=== PATIENT | female | born 1980 | race African-American/Black ===

== ENCOUNTER → 2017-01-25 | Outpatient (CLI) | payer MEDICAID ==
[2017-01-25 18:21] LABS: BILIRUBIN,URINE NEGATIVE (NEGATIVE); GLUCOSE, URINE (UA) NEGATIVE (NEGATIVE); KETONES,URINE (UA) TRACE mg/dL (NEGATIVE); LEUKOCYTE ESTERASE, URINE NEGATIVE (NEGATIVE); NITRITE,URINE NEGATIVE (NEGATIVE); OCCULT BLOOD,URINE NEGATIVE (NEGATIVE); PROTEIN,URINE NEGATIVE (NEGATIVE); UROBILINOGEN,URINE 0.2 (NORMAL) E.U./dL (NORMAL)
[2017-01-25 18:24] LABS: CLARITY,URINE CLEAR (CLEAR)
== END ==
LOC: LAB.F 08:00
DX: N39.0 Urinary tract infection, site not specified (principal)
CPT/HCPCS: 81001; 81003; 87086

== ENCOUNTER 2017-03-27 08:41 | Outpatient (CLI) | payer MEDICAID ==
[2017-03-27 11:52] LABS: BASOPHILS % (AUTO) 0.4 %; EOSINOPHILS # (AUTO) 0.1 10^3/uL (0.0-0.7); EOSINOPHILS % (AUTO) 1.7 %; HGB - HEMOGLOBIN 14.4 g/dL (12.0-16.0); LYMPHOCYTES # (AUTO) 1.9 10^3/uL (1.5-3.5); LYMPHOCYTES % (AUTO) 23.4 %; MEAN CORPUSCULAR HEMOGLOBIN 31.3 pg (27.0-31.0); MEAN CORPUSCULAR HGB CONC 34.4 g/dL (32.0-36.0); MEAN CORPUSCULAR VOLUME 90.8 fL (81.0-99.0); MEAN PLATELET VOLUME 8.8 fL (7.9-10.8); MONOCYTES # (AUTO) 0.4 10^3/uL (0.0-1.0); NEUTROPHILS # (AUTO) 5.8 10^3/uL (1.5-6.6); NEUTROPHILS % (AUTO) 69.5 %; PLT - PLATELET COUNT 278 10^3/uL (130-450); RED BLOOD COUNT 4.62 10^6/uL (4.20-5.40); RED CELL DISTRIBUTION WIDTH 12.4 % (12.0-15.0); WHITE BLOOD COUNT 8.3 x10^3/uL (4.8-10.8)
[2017-03-27 12:37] LABS: ALBUMIN 4.3 g/dL (3.2-5.5); ALBUMIN/GLOBULIN RATIO 1.4 (1.0-2.2); ALKALINE PHOSPHATASE 45 IU/L (42-121); ALT ALANINE AMINOTRANSFERASE 19 IU/L (10-60); AST ASPARTATE AMINOTRANSFERASE 22 IU/L (10-42); BILIRUBIN,TOTAL 1.3 mg/dL (0.2-1.0); BUN - BLOOD UREA NITROGEN 15 mg/dL (6-20); CARBON DIOXIDE - CO2 28 mmol/L (21-32); CHLORIDE 99 mmol/L (101-111); CHOL/HDL RATIO 2.9 (<4.4); CHOLESTEROL 178 mg/dL; CREATININE 0.6 mg/dL (0.4-1.0); GFR - MDRD 137 (>89); GLUCOSE 79 mg/dL (70-100); HDL CHOLESTEROL 62 mg/dL; LDL CHOLESTEROL,CALCULATED 98 mg/dL; LDL/HDL RATIO 1.6 (<4.4); SODIUM 137 mmol/L (135-145); TOTAL PROTEIN 7.4 g/dL (6.7-8.2); VLDL CHOLESTEROL 18 mg/dL
[2017-03-27 12:47] LABS: THYROID STIMULATING HORMONE 2.68 uIU/mL (0.34-5.60)
[2017-03-27 12:49] LABS: FREE T4 (FREE THYROXINE) 0.68 ng/dL (0.58-1.64)
== END 2017-03-27 08:42 | disposition home or self-care (01) ==
LOC: LAB.F 08:41
PROVIDERS: ATTEND Nurse Practitioner Family
DX: E03.9 Hypothyroidism, unspecified (principal); Z13.6 Encounter for screening for cardiovascular disorders
CPT/HCPCS: 36415; 80053; 80061; 83721; 84439; 84443; 84481; 85025

== ENCOUNTER 2017-09-21 08:00 | Outpatient (CLI) | payer MEDICAID ==
[2017-09-21 17:47] LABS: THYROID STIMULATING HORMONE 1.73 uIU/mL (0.34-5.60)
[2017-09-21 17:50] LABS: FREE T4 (FREE THYROXINE) 0.5 ng/dL (0.58-1.64)
== END 2017-09-21 08:01 ==
LOC: LAB.F 08:00
PROVIDERS: ATTEND Nurse Practitioner Family
DX: E03.9 Hypothyroidism, unspecified (principal)
CPT/HCPCS: 36415; 84439; 84443

== ENCOUNTER 2017-09-27 09:30 | Outpatient (CLI) | payer MEDICAID ==
[2017-09-27 18:04] LABS: BILIRUBIN,URINE NEGATIVE (NEGATIVE); GLUCOSE, URINE (UA) NEGATIVE (NEGATIVE); KETONES,URINE (UA) NEGATIVE (NEGATIVE); LEUKOCYTE ESTERASE, URINE NEGATIVE (NEGATIVE); NITRITE,URINE NEGATIVE (NEGATIVE); OCCULT BLOOD,URINE TRACE-INTA (NEGATIVE); PROTEIN,URINE NEGATIVE (NEGATIVE); UROBILINOGEN,URINE 0.2 (NORMAL) E.U./dL (NORMAL)
[2017-09-27 18:15] LABS: CLARITY,URINE HAZY (CLEAR)
[2017-09-27 18:16] LABS: BACTERIA,URINE Few /HPF (None Seen); MUCUS,URINE Few Strands; RBC,URINE 0-5 /HPF (0-5); SQUAMOUS EPITHELIAL CELL,UR FEW Squamous (<= Few); WBC CLUMPS,URINE PRESENT; YEAST,URINE PRESENT
== END 2017-09-27 09:31 | disposition home or self-care (01) ==
LOC: LAB.R 09:30
PROVIDERS: ATTEND Nurse Practitioner Family
DX: R30.0 Dysuria (principal)
CPT/HCPCS: 81001; 87086

== ENCOUNTER 2017-10-09 08:32 | Emergency (ER) | payer MEDICAID ==
[2017-10-09 12:06] LABS: BILIRUBIN,URINE NEGATIVE (NEGATIVE); GLUCOSE, URINE (UA) NEGATIVE (NEGATIVE); KETONES,URINE (UA) NEGATIVE (NEGATIVE); LEUKOCYTE ESTERASE, URINE NEGATIVE (NEGATIVE); NITRITE,URINE NEGATIVE (NEGATIVE); OCCULT BLOOD,URINE MODERATE (NEGATIVE); PH,URINE 6.5 PH (5.0-7.5); PROTEIN,URINE NEGATIVE (NEGATIVE); UROBILINOGEN,URINE 0.2 (NORMAL) E.U./dL (NORMAL)
[2017-10-09 12:17] LABS: CLARITY,URINE CLEAR (CLEAR); HCG UR QUAL NEGATIVE
[2017-10-09 12:23] LABS: BACTERIA,URINE Few /HPF (None Seen); MUCUS,URINE Few Strands; RBC,URINE 0-5 /HPF (0-5); SQUAMOUS EPITHELIAL CELL,UR FEW Squamous (<= Few)
[2017-10-09 12:42] LABS: BASOPHILS # (AUTO) 0.1 10^3/uL (0.0-0.1); BASOPHILS % (AUTO) 0.7 %; EOSINOPHILS # (AUTO) 0.1 10^3/uL (0.0-0.7); EOSINOPHILS % (AUTO) 2.1 %; HGB - HEMOGLOBIN 14.5 g/dL (12.0-16.0); LYMPHOCYTES # (AUTO) 1.7 10^3/uL (1.5-3.5); LYMPHOCYTES % (AUTO) 24.1 %; MEAN CORPUSCULAR HEMOGLOBIN 31.7 pg (27.0-31.0); MEAN CORPUSCULAR HGB CONC 35.2 g/dL (32.0-36.0); MEAN CORPUSCULAR VOLUME 90.1 fL (81.0-99.0); MEAN PLATELET VOLUME 8.6 fL (7.9-10.8); MONOCYTES # (AUTO) 0.4 10^3/uL (0.0-1.0); MONOCYTES % (AUTO) 5.9 %; NEUTROPHILS # (AUTO) 4.6 10^3/uL (1.5-6.6); NEUTROPHILS % (AUTO) 67.2 %; PLT - PLATELET COUNT 315 10^3/uL (130-450); RED BLOOD COUNT 4.57 10^6/uL (4.20-5.40); WHITE BLOOD COUNT 6.9 x10^3/uL (4.8-10.8)
--- NOTE | 2017-10-09 12:45 | ED Physician Documentation ---
PD HPI ABD PAIN - Stated complaint Stated Complaint: SIDE PX/PRESSURE - Chief complaint Chief Complaint: Abd Pain - History obtained from History obtained from: Patient - History of Present Illness Timing - duration: Days Timing - details: Gradual onset Quality: Cramping, Aching, Fullness/distended (she feels that she is not emptying bladder and has cramping pains suprapubic area.) Location: Periumbilical, Suprapubic Radiation: Right flank Improved by: No: Eating Worsened by: No: Eating Associated symptoms: Nausea, Dysuria. No: Fever, Vomiting, Diarrhea, Hematuria , Loss of appetite, Weight loss Similar symptoms before: Has not had sx before Recently seen: Clinic (seen in clinic and had question of UTI with Rx Bactrim for a week. No change in symptoms. Did not get follow up call on urine culture.) Review of Systems Constitutional: reports: Myalgias. denies: Fever, Chills Nose: denies: Rhinorrhea / runny nose, Congestion Throat: denies: Sore throat Respiratory: denies: Cough GI: reports: Abdominal Pain, Nausea. denies: Vomiting, Diarrhea : reports: Dysuria, Frequency. denies: Hematuria, Discharge Skin: denies: Rash, Lesions Musculoskeletal: reports: Back pain. denies: Neck pain PD PAST MEDICAL HISTORY - Past Medical History Cardiovascular: None Respiratory: None Neuro: None Endocrine/Autoimmune: HyPOthyroidism - Present Medications Home Medications: Ambulatory Orders Medication Instructions Recorded Confirmed Fluconazole [Diflucan] 150 mg PO Q2D #3 tablet 10/09/17 Liothyronine [Cytomel] 15 mcg PO QDAC 10/09/17 10/09/17 Nitrofurantoin Monohyd/M-Cryst 100 mg PO BID #14 capsule 10/09/17 [Macrobid 100 mg Capsule] Ondansetron Odt [Zofran] 4 mg TL Q6H PRN #15 tablet 10/09/17 Phenazopyridine [Pyridium] 200 mg PO TID PRN #15 tablet 10/09/17 - Allergies Allergies/Adverse Reactions: Allergies Allergy/AdvReac Type Severity Reaction Status Date / Time No Known Drug Allergies Allergy Verified 10/09/17 08:57 PD ED PE NORMAL - Vitals Vital signs reviewed: Yes - General General: Alert and oriented X 3, No acute distress, Well developed/nourished - HEENT HEENT: Pharynx benign - Neck Neck: Supple, no meningeal sign, No adenopathy - Cardiac Cardiac: RRR, No murmur - Respiratory Respiratory: Clear bilaterally - Abdomen Abdomen: Normal bowel sounds, Soft, Non distended, No organomegaly, Other (some tender without guarding lower abd midline. Bladder scanner by nursing showing just 57 ml post void. ) - Female Female : Deferred - Rectal Rectal: Deferred - Back Back: No CVA TTP - Derm Derm: Normal color, Warm and dry, No rash - Extremities Extremities: No deformity, No tenderness to palpate, Normal ROM s pain, No edema , No calf tenderness / cord - Neuro Neuro: Alert and oriented X 3, No motor deficit, Normal speech Results - Vitals Vitals: Oxygen O2 Source Room air - Labs Labs: Microbiology 10/09/17 14:55 Urine Culture - Final Urine,Clean Catch 10-50,000 COLONIES/ML Polymicrobial growth including potential pathogens. This is suggestive of skin or other contamination. Laboratory Tests 10/09/17 10/09/17 10/09/17 11:40 12:20 12:20 WBC 6.9 RBC 4.57 Hgb 14.5 Hct 41.2 MCV 90.1 MCH 31.7 H MCHC 35.2 RDW 13.0 Plt Count 315 MPV 8.6 Neut # (Auto) 4.6 Lymph # (Auto) 1.7 [place] # (Auto) 0.4 Eos # (Auto) 0.1 Baso # (Auto) 0.1 Absolute Nucleated RBC 0.00 Nucleated RBC % 0.0 Sodium 134 L Potassium 3.4 L Chloride 100 L Carbon Dioxide 25 Anion Gap 9.0 BUN 13 Creatinine 0.6 Estimated GFR (MDRD) 136 Glucose 138 H Calcium 9.5 Total Bilirubin 1.2 H AST 18 ALT 13 Alkaline Phosphatase 57 Total Protein 7.8 Albumin 4.5 Globulin 3.3 Albumin/Globulin Ratio 1.4 Lipase 30 Urine Color YELLOW Urine Clarity CLEAR Urine pH 6.5 Ur Specific [place] 1.020 Urine Protein NEGATIVE Urine Glucose (UA) NEGATIVE Urine Ketones NEGATIVE Urine Occult Blood MODERATE H Urine Nitrite NEGATIVE Urine Bilirubin NEGATIVE Urine Urobilinogen 0.2 (NORMAL) Ur Leukocyte Esterase NEGATIVE Urine RBC 0-5 Urine WBC 0-3 Ur Squamous Epith Cells FEW Squamous Urine Bacteria Few Urine Mucus Few Strands Ur Microscopic Review INDICATED Urine Culture Comments NOT INDICATED Urine HCG, Qual NEGATIVE - Rads (name of study) abd/pelvic CT Radiology: Prelim report reviewed (stones in kidney, no ureteral stones. no other acute process. ) PD MEDICAL DECISION MAKING - ED course Complexity details: reviewed old records (prior urine culture reports growth of yeast. ), reviewed results (no stones nor hydro or other finding for the pain. ) , considered differential, d/w patient - Sepsis Event Vital Signs: Oxygen O2 Source Room air Departure - Departure Disposition: Home, Self Care Clinical Impression: Dysuria, Yeast UTI Urinary tract infection Qualifiers: Urinary tract infection type: acute cystitis Hematuria presence: without hematuria Qualified Code(s): N30.00 - Acute cystitis without hematuria Condition: Stable Record reviewed to determine appropriate education?: Yes Instructions: ED UTI Cystitis Female Follow-Up: Niesha Barragan ARNP [Primary Care Provider] - Prescriptions: Fluconazole [Diflucan] 150 mg PO Q2D #3 tablet Nitrofurantoin Monohyd/M-Cryst [Macrobid 100 mg Capsule] 100 mg PO BID #14 capsule Ondansetron Odt [Zofran] 4 mg TL Q6H PRN #15 tablet PRN Reason: Nausea / Vomiting Phenazopyridine [Pyridium] 200 mg PO TID PRN #15 tablet PRN Reason: Pain Comments: Your CT scan does not show any signs of obvious cause for the pains. Your bladder scanner shows minimal postvoid residual which is a good thing. There is no obvious infection on your urine test today but the culture from recently showed yeast. We will treat that with an antifungal Diflucan. Phenazopyridine for the urinary discomfort. Use some naproxen or ibuprofen twice daily for inflammation. Ondansetron if needed for nausea. Pending the culture from today , will treat with the antibiotic just in case with my growth. Twice daily for a week. We will see what the culture shows the next 2-3 days. Discharge Date/Time: 10/09/17 15:30
[2017-10-09 12:54] LABS: ALBUMIN 4.5 g/dL (3.2-5.5); ALBUMIN/GLOBULIN RATIO 1.4 (1.0-2.2); BILIRUBIN,TOTAL 1.2 mg/dL (0.2-1.0); CALCIUM 9.5 mg/dL (8.5-10.3); CREATININE 0.6 mg/dL (0.4-1.0); TOTAL PROTEIN 7.8 g/dL (6.7-8.2)
--- NOTE | 2017-10-09 14:10 | CT Report ---
Reason: flank pain and dysuria. Procedure Date: 10/09/2017 Accession Number: [id number] / [id number] Procedure: CT - KUB CPT Code: FULL RESULT: EXAM: CT ABDOMEN AND PELVIS EXAM DATE: 10/09/2017 01:36 PM. CLINICAL HISTORY: Bilateral flank pain and dysuria. COMPARISONS: None. TECHNIQUE: Routine helical CT imaging was performed through the abdomen and pelvis. IV contrast: None. Enteric contrast: No. Reconstructions: Coronal and sagittal. In accordance with CT protocol optimization, one or more of the following dose reduction techniques were utilized for this exam: automated exposure control, adjustment of mA and/or KV based on patient size, or use of iterative reconstructive technique. FINDINGS: Lung Bases: Unremarkable. Liver: Normal. No masses. Gallbladder/Bile Ducts: Unremarkable. Spleen: Normal. Pancreas: Normal. Adrenal Glands: Normal. Kidneys: Several 5 mm and smaller nonobstructing calyceal stones right kidney. Single 1 mm nonobstructing stone left kidney. No renal masses nor hydronephrosis. No peripelvic nor perirenal edema. Both ureters are normal. Peritoneal Cavity/Bowel: Several 1.2 cm and smaller dense mesenteric calcifications left mid abdomen. No free fluid, free air or noncalcified adenopathy. No masses or acute inflammatory process. Appendix not seen. No inflammatory changes adjacent to cecum. Pelvic Organs: Normal. The bladder and visualized pelvic organs are within normal limits. Vasculature: No aneurysms or other significant abnormality. Bones: No significant abnormality. Other: None. IMPRESSION: 1. Bilateral nephrolithiasis. No obstructive uropathy. 2. Benign appearing mesenteric calcifications left mid abdomen, most likely representing old inflammatory or granulomatous process. 3. Appendix not visualized but no inflammatory changes adjacent to the cecum. RADIA
[2017-10-09] MEDS ORDERED: NITROFURANTOIN MACRO 100 MG CAPSULE PO STA (14:46)
[2017-10-09] MEDS ORDERED: DEXAMETHASONE 10 MG/ML VIAL PO STA (14:46)
[2017-10-09] MEDS ORDERED: FLUCONAZOLE 100 MG TABLET PO STA (14:46)
[2017-10-09] MEDS ORDERED: PHENAZOPYRIDINE 100 MG TABLET PO STA (14:47)
[2017-10-09 14:50] VITALS: BP 134/88
[2017-10-09] MEDS ORDERED: CHERRY SYRUP 10 ML UDC PO ONE (15:00)
== END 2017-10-09 15:30 | disposition home or self-care (01) ==
LOC: ED 08:32
DX: B37.49 Other urogenital candidiasis (principal); N30.90 Cystitis, unspecified without hematuria; E03.9 Hypothyroidism, unspecified
CPT/HCPCS: 36415; 74176; 80053; 81001; 81025; 83690; 85025; 87086; 99283; A9270; 81003

== ENCOUNTER 2017-11-16 07:51 | Outpatient (CLI) | payer MEDICAID ==
[2017-11-16 11:15] LABS: THYROID STIMULATING HORMONE 2.27 uIU/mL (0.34-5.60)
[2017-11-16 11:17] LABS: FREE T4 (FREE THYROXINE) 0.46 ng/dL (0.58-1.64)
== END 2017-11-16 07:52 | disposition home or self-care (01) ==
LOC: LAB.F 07:51
PROVIDERS: ATTEND Nurse Practitioner Family
DX: I10 Essential (primary) hypertension (principal); E03.9 Hypothyroidism, unspecified
CPT/HCPCS: 36415; 84132; 84439; 84443

== ENCOUNTER 2018-01-16 12:16 | Outpatient (CLI) | payer MEDICAID ==
[2018-01-16 18:51] LABS: THYROID STIMULATING HORMONE 1.43 uIU/mL (0.34-5.60)
[2018-01-16 18:53] LABS: FREE T4 (FREE THYROXINE) 0.95 ng/dL (0.58-1.64)
[2018-01-16 18:57] LABS: PROLACTIN 10.45 ng/mL
== END 2018-01-16 12:17 | disposition home or self-care (01) ==
LOC: LAB.F 12:16
PROVIDERS: ATTEND Internal Medicine
DX: E03.9 Hypothyroidism, unspecified (principal); R53.82 Chronic fatigue, unspecified; R94.6 Abnormal results of thyroid function studies; G47.30 Sleep apnea, unspecified; E66.9 Obesity, unspecified
CPT/HCPCS: 36415; 84146; 84439; 84443

== ENCOUNTER 2018-02-01 07:12 | Outpatient (CLI) | payer MEDICAID ==
[2018-02-01 10:21] LABS: BASOPHILS % (AUTO) 0.2 %; EOSINOPHILS # (AUTO) 0.1 10^3/uL (0.0-0.7); EOSINOPHILS % (AUTO) 1.7 %; HGB - HEMOGLOBIN 13.3 g/dL (12.0-16.0); LYMPHOCYTES # (AUTO) 2.1 10^3/uL (1.5-3.5); LYMPHOCYTES % (AUTO) 27.4 %; MEAN CORPUSCULAR HEMOGLOBIN 31.6 pg (27.0-31.0); MEAN CORPUSCULAR HGB CONC 35.3 g/dL (32.0-36.0); MEAN CORPUSCULAR VOLUME 89.5 fL (81.0-99.0); MEAN PLATELET VOLUME 8.9 fL (7.9-10.8); MONOCYTES # (AUTO) 0.5 10^3/uL (0.0-1.0); NEUTROPHILS # (AUTO) 4.9 10^3/uL (1.5-6.6); NEUTROPHILS % (AUTO) 64.7 %; PLT - PLATELET COUNT 281 10^3/uL (130-450); RED CELL DISTRIBUTION WIDTH 12.4 % (12.0-15.0); WHITE BLOOD COUNT 7.5 x10^3/uL (4.8-10.8)
[2018-02-01 10:25] LABS: ALBUMIN 4.1 g/dL (3.2-5.5); ALBUMIN/GLOBULIN RATIO 1.5 (1.0-2.2); BILIRUBIN,TOTAL 0.6 mg/dL (0.2-1.0); CREATININE 0.6 mg/dL (0.4-1.0); TOTAL PROTEIN 6.8 g/dL (6.7-8.2)
== END 2018-02-01 07:13 | disposition home or self-care (01) ==
LOC: LAB.F 07:12
PROVIDERS: ATTEND Internal Medicine
DX: R68.2 Dry mouth, unspecified (principal); R06.02 Shortness of breath; E03.9 Hypothyroidism, unspecified
CPT/HCPCS: 36415; 80053; 84443; 85025

== ENCOUNTER 2018-03-06 12:32 | Outpatient (CLI) | payer MEDICAID ==
[2018-03-06 18:21] LABS: THYROID STIMULATING HORMONE 1.34 uIU/mL (0.34-5.60)
[2018-03-06 18:22] LABS: FREE T4 (FREE THYROXINE) 0.5 ng/dL (0.58-1.64)
== END 2018-03-06 12:33 | disposition home or self-care (01) ==
LOC: LAB.F 12:32
PROVIDERS: ATTEND Nurse Practitioner Family
DX: E03.9 Hypothyroidism, unspecified (principal)
CPT/HCPCS: 36415; 84439; 84443; 84480; 84481

== ENCOUNTER 2018-03-22 12:24 | Outpatient (CLI) | payer MEDICAID ==
--- NOTE | 2018-03-22 15:39 | Mammography Report ---
Reason: SCREENING MAMMOGRAM FOR BREAST CANCER Procedure Date: 03/22/2018 Accession Number: [id number] / [id number] Procedure: CARLO - Diagnostic Dig Bilat CPT Code: FULL RESULT: EXAM: Diagnostic Dig Bilat, Breast Unilateral Limited DATE: 03/22/2018 1:41 PM CLINICAL HISTORY: Focal periareolar left breast pain TECHNIQUE: Bilateral digital CC and MLO projections. Real-time scanning of the left breast periareolar region with me present and saved static images reviewed. COMPARISON: Baseline examination. MAMMOGRAM: FINDINGS: The breast tissue is heterogeneously dense. No dominant mass, architectural distortion, skin thickening, or suspicious microcalcifications. No abnormality seen in the area of left periareolar pain. LEFT BREAST ULTRASOUND: In the area of focal pain left breast 11:00 position 2 cm from the nipple there is focal likely related to interfaces between breast tissue and focal supporting structures. No cystic or solid mass or abnormal fluid collection is seen. IMPRESSION: 1. Negative right breast. 2. Probably benign finding left breast. Suggest follow-up left breast ultrasound in 6 months. RECOMMENDATION: Left breast ultrasound in 6 months. BIRADS CATEGORY 3: Probably benign STANDARD QUALIFYING STATEMENTS: 1. This examination was not reviewed with the aid of Computer-Aided Detection (CAD). 2. A negative or benign imaging report should not delay biopsy if clinically suspicious findings are present. Consider surgical consultation if warrented. More than 5% of cancers are not identified by imaging. 3. Dense breasts may obscure an underlying neoplasm. 4. This examination was reviewed with the aid of 3D imaging (tomography).
== END 2018-03-22 12:25 | disposition home or self-care (01) ==
LOC: DI 12:24
PROVIDERS: ATTEND Nurse Practitioner Family
DX: N64.4 Mastodynia (principal)
CPT/HCPCS: 76642; 77066

== ENCOUNTER 2018-04-30 08:00 | Outpatient (CLI) | payer MEDICAID ==
[2018-04-30 18:15] LABS: THYROID STIMULATING HORMONE 0.97 uIU/mL (0.34-5.60)
[2018-04-30 18:17] LABS: FREE T4 (FREE THYROXINE) 0.6 ng/dL (0.58-1.64)
== END 2018-04-30 23:59 | disposition home or self-care (01) ==
LOC: LAB.F 08:00
PROVIDERS: ATTEND Nurse Practitioner
DX: E03.9 Hypothyroidism, unspecified (principal)
CPT/HCPCS: 36415; 84439; 84443; 84481

== ENCOUNTER 2018-06-09 11:57 | Outpatient (CLI) | payer MEDICAID ==
--- NOTE | 2018-06-10 12:51 | Ultrasound Report ---
Reason: LUMP, LEFT AXILLA Procedure Date: 06/09/2018 Accession Number: [id number] / [id number] Procedure: US - Ext Limited Non Vascular CPT Code: FULL RESULT: EXAM: LEFT UPPER EXTREMITY ULTRASOUND - LIMITED EXAM DATE: 06/09/2018 12:23 PM. CLINICAL HISTORY: Lump in the left axilla. COMPARISON: None. TECHNIQUE: Real-time scanning was performed with static images obtained. FINDINGS: Limited focused ultrasound examination of the left axillary region demonstrates preserved tissue architecture with no abnormal mass or collection identified. IMPRESSION: Normal study. RADIA
== END 2018-06-09 11:58 | disposition home or self-care (01) ==
LOC: DI 11:57
PROVIDERS: ATTEND Nurse Practitioner Family
DX: R22.9 Localized swelling, mass and lump, unspecified (principal)
CPT/HCPCS: 76882

== ENCOUNTER 2019-06-20 13:09 | Outpatient (CLI) | payer MEDICAID ==
--- NOTE | 2019-06-20 16:02 | CT Report ---
Reason: PELVIC PAIN Procedure Date: 06/20/2019 Accession Number: [id number] / [id number] Procedure: CT - PELVIS WO CPT Code: Final Report FULL RESULT: EXAM: CT BONY PELVIS WITHOUT CONTRAST EXAM DATE: 06/20/2019 01:23 PM. CLINICAL HISTORY: Chronic bilateral pelvic/SI joint pain x2 years. COMPARISON: None. TECHNIQUE: Thin-section axial images were acquired of the pelvis without contrast. Post-processing: Coronal and sagittal reformats. Other: None. In accordance with CT protocol optimization, one or more of the following dose reduction techniques were utilized for this exam: automated exposure control, adjustment of mA and/or KV based on patient size, or use of iterative reconstructive technique. FINDINGS: Bones: There is diffuse sclerosis along the iliac side of both sacroiliac joints, more pronounced on the left than on the right. On the left, this involves the entire craniocaudad extent of the SI joint and there is no significant sclerosis along the sacral side of the SI joint. On the right, the sclerosis is most pronounced along the inferior margin of the sacroiliac joint and there is a small amount of sclerosis along the sacral side of the joint at the midportion of the SI joint in the craniocaudad dimension. Differential diagnosis would include osteitis condensans ilii versus sacroiliitis. Osteitis condensans ilii is favored as there are no CT signs of sacroiliitis including no erosions or joint space narrowing. The hip joints are normal bilaterally. The pubic symphysis is normal. The pelvis, sacrum, and proximal femora are intact. No fracture. Soft tissues: The visible intrapelvic and extrapelvic soft tissues are unremarkable. IMPRESSION: 1. No fracture. 2. Sclerosis along the iliac side of both sacroiliac joints, more pronounced on the left, with scant sclerosis along the sacral side of the left sacroiliac joint. Differential diagnosis would include inflammatory sacroiliitis versus benign osteitis condensans ilii. The lack of erosions or ankylosis favors osteitis condensans ilii, though the asymmetric appearance of the sclerosis is somewhat atypical as osteitis condensans ilii is usually bilaterally symmetric. RADIA
== END 2019-06-20 13:10 | disposition home or self-care (01) ==
LOC: DI 13:09
PROVIDERS: ATTEND Anesthesiology
DX: R10.2 Pelvic and perineal pain (principal); G89.29 Other chronic pain
CPT/HCPCS: 72192

== ENCOUNTER 2019-07-17 13:34 | Outpatient (CLI) | payer MEDICAID ==
--- NOTE | 2019-07-17 15:39 | MRI Report ---
PROCEDURE: Pelvis W/O INDICATIONS: PELVIC PAIN (RULE OUT PELVIC FRACTURE) TECHNIQUE: Noncontrast coronal T1 spin echo and STIR through the bony pelvis. Sagittal T2 FSE with fat saturati on, oblique axial PD FSE and T2 FSE with fat saturation through the symphysis pubis. COMPARISON: None. FINDINGS: Image quality: Excellent. Tendons and muscles: The attachments of the rectus abdominis and adductor longus muscles anterior to the pubic bodies appear intact bilaterally. The intervening common aponeurosis demonstrates normal morphology and signal. More inferiorly, the adductor longus musculotendinous junctions appear normal , without tendinopathy or tears. More inferior images demonstrate no fascial herniations of the addu ctor longus muscle fibers. Bony structures: No focal bone marrow edema around the symphysis pubis. No productive or erosive renu ny changes to suggest osteitis pubis. No stress fractures. No suspicious marrow space occupying les ions. Other tendons: The gluteus medius and minimus tendons appear intact, without associated muscle atrop hy. The iliopsoas tendon appears intact, without adjacent bursal fluid collections. The origin of t he hamstring tendons are intact at the ischial tuberosities. Hip joints: Larger field of view images demonstrate no avascular necrosis of the femoral heads. The acetabular labrum appears intact in the absence of intra-articular contrast. Soft tissues: Immediately lateral to the rectus abdominis tendon fibers, the superficial rings of th e inguinal canals demonstrate no hernias. The proximal sciatic neurovascular bundles appear normal a djacent to the hamstring tendons. There is a small amount of free fluid within the pelvis, which is w ithin physiological limits in a menstruating female. Bladder wall thickness is normal. Genitourinary structures and bowel loops appear normal where visualized. IMPRESSION: 1. No osseous abnormality. No fracture. 2. Small amount of physiologic free fluid within the pelvis. Reviewed by: Davy Steele MD on 07/17/2019 3:38 PM PDT Approved by: Davy Steele MD on 07/17/2019 3:38 PM PDT Station ID: [id number]
== END 2019-07-17 13:35 | disposition home or self-care (01) ==
LOC: DI 13:34
PROVIDERS: ATTEND Anesthesiology
DX: R10.2 Pelvic and perineal pain (principal)
CPT/HCPCS: 72195

== ENCOUNTER 2019-08-07 12:47 | Outpatient (CLI) | payer MEDICAID | END 2019-08-07 12:48 | disposition home or self-care (01) | LOC: LAB 12:47 | PROVIDERS: ATTEND Internal Medicine | DX: Z01.818 Encounter for other preprocedural examination (principal); Z20.828 Contact with and (suspected) exposure to other viral communicable diseases | CPT/HCPCS: 81599 ==

== ENCOUNTER 2019-08-08 11:46 | Outpatient (CLI) | payer MEDICAID ==
[2019-08-08 14:46] LABS: CALCIUM 9.1 mg/dL (8.5-10.3); CREATININE 0.6 mg/dL (0.4-1.0)
== END 2019-08-08 11:47 | disposition home or self-care (01) ==
LOC: LAB.S 11:46
PROVIDERS: ATTEND Nurse Practitioner Psychiatric/Mental Health
DX: F31.9 Bipolar disorder, unspecified (principal)
CPT/HCPCS: 36415; 80048

== ENCOUNTER 2019-11-04 14:53 | Outpatient (CLI) | payer MEDICAID ==
[2019-11-04 19:59] LABS: BASOPHILS % (AUTO) 0.5 %; EOSINOPHILS # (AUTO) 0.1 10^3/uL (0.0-0.7); EOSINOPHILS % (AUTO) 0.8 %; HGB - HEMOGLOBIN 14.8 g/dL (12.0-16.0); LYMPHOCYTES # (AUTO) 2.1 10^3/uL (1.5-3.5); LYMPHOCYTES % (AUTO) 23.7 %; MEAN CORPUSCULAR HEMOGLOBIN 30.4 pg (27.0-31.0); MEAN CORPUSCULAR HGB CONC 32.6 g/dL (32.0-36.0); MEAN CORPUSCULAR VOLUME 93.2 fL (81.0-99.0); MEAN PLATELET VOLUME 10.9 fL (7.9-10.8); MONOCYTES # (AUTO) 0.4 10^3/uL (0.0-1.0); MONOCYTES % (AUTO) 4.3 %; NEUTROPHILS # (AUTO) 6.1 10^3/uL (1.5-6.6); NEUTROPHILS % (AUTO) 70.4 %; PLT - PLATELET COUNT 372 10^3/uL (130-450); RED BLOOD COUNT 4.87 10^6/uL (4.20-5.40); RED CELL DISTRIBUTION WIDTH 11.8 % (12.0-15.0); WHITE BLOOD COUNT 8.7 x10^3/uL (4.8-10.8)
[2019-11-04 20:06] LABS: BILIRUBIN,URINE NEGATIVE (NEGATIVE); GLUCOSE, URINE (UA) NEGATIVE (NEGATIVE); KETONES,URINE (UA) NEGATIVE (NEGATIVE); LEUKOCYTE ESTERASE, URINE NEGATIVE (NEGATIVE); NITRITE,URINE NEGATIVE (NEGATIVE); OCCULT BLOOD,URINE NEGATIVE (NEGATIVE); PROTEIN,URINE NEGATIVE (NEGATIVE); UROBILINOGEN,URINE 0.2 (NORMAL) E.U./dL (NORMAL)
[2019-11-04 20:21] LABS: BACTERIA,URINE Few /HPF (None Seen); CLARITY,URINE HAZY (CLEAR); CRYSTALS,URINE 11-25 Ca Oxalate /LPF; MUCUS,URINE Few Strands; RBC,URINE 0-5 /HPF (0-5); SQUAMOUS EPITHELIAL CELL,UR FEW Squamous (<= Few)
[2019-11-04 20:23] LABS: ALBUMIN 4.7 g/dL (3.2-5.5); ALBUMIN/GLOBULIN RATIO 1.4 (1.0-2.2); ALKALINE PHOSPHATASE 47 IU/L (42-121); ALT ALANINE AMINOTRANSFERASE 16 IU/L (10-60); AST ASPARTATE AMINOTRANSFERASE 19 IU/L (10-42); BUN - BLOOD UREA NITROGEN 20 mg/dL (6-20); CALCIUM 9.5 mg/dL (8.5-10.3); CARBON DIOXIDE - CO2 29 mmol/L (21-32); CHLORIDE 98 mmol/L (101-111); CREATININE 0.9 mg/dL (0.4-1.0); GLUCOSE 84 mg/dL (70-100); SODIUM 137 mmol/L (135-145)
[2019-11-04 20:32] LABS: THYROID STIMULATING HORMONE 2.9 uIU/mL (0.34-5.60)
[2019-11-04 20:34] LABS: FREE T4 (FREE THYROXINE) 0.79 ng/dL (0.58-1.64)
[2019-11-04 20:39] LABS: TOTAL T3 0.89 ng/mL (0.87-1.78)
[2019-11-04 20:58] LABS: CRP - C-REACTIVE PROTEIN < 1.0 mg/dL (0-1.0)
== END 2019-11-04 14:54 | disposition home or self-care (01) ==
LOC: LAB.S 14:53
DX: E03.9 Hypothyroidism, unspecified (principal); N20.0 Calculus of kidney; R19.09 Other intra-abdominal and pelvic swelling, mass and lump; F10.21 Alcohol dependence, in remission
CPT/HCPCS: 36415; 80053; 81001; 84439; 84443; 84480; 85025; 86140; 87086

== ENCOUNTER 2020-03-12 13:13 | Outpatient (CLI) | payer MEDICAID | END 2020-03-12 13:14 | disposition home or self-care (01) | LOC: LAB.S 13:13 | PROVIDERS: ATTEND Allergy & Immunology Allergy | DX: D89.40 Mast cell activation, unspecified (principal); H10.10 Acute atopic conjunctivitis, unspecified eye; R06.7 Sneezing; R09.89 Other specified symptoms and signs involving the circulatory and respiratory systems; T78.40XA Allergy, unspecified, initial encounter | CPT/HCPCS: 36415; 81599; 82785; 83520; 84443; 86003; 86343; 86376; 86800 ==

== ENCOUNTER 2020-08-19 16:10 | Outpatient (CLI) | payer MEDICAID | END 2020-08-19 16:11 | disposition home or self-care (01) | LOC: COV 16:10 | PROVIDERS: ATTEND Internal Medicine Gastroenterology | DX: Z20.822 Contact with and (suspected) exposure to COVID-19 (principal) ==

== ENCOUNTER 2020-09-30 15:05 | Outpatient (CLI) | payer MEDICAID ==
--- NOTE | 2020-09-30 16:51 | Ultrasound Report ---
PROCEDURE: Retroperitoneal INDICATIONS: FLANK PAIN TECHNIQUE: Real-time scanning was performed of the retroperitoneal organs, with image documentation. COMPARISON: None. FINDINGS: Kidneys: Kidneys are normal in size. Right kidney measures 10.8 cm long; left kidney measures 11.0 cm long. Right renal cortical thickness is 1.4 cm; left renal cortical thickness is 1.5 cm. No angi d masses, hydronephrosis. 7 mm nonobstructive right renal calculus involving the lower pole Miscellaneous: Prevoid bladder volume measures 1 98 cc. Postvoid residual measures 25 cc Both ureteral jets noted. Incidentally noted hepatic steatosis. IMPRESSION: Nonobstructive 7 mm right renal calculus. 25 cc postvoid residual. Reviewed by: Mike Broderick MD on 09/30/2020 4:49 PM PDT Approved by: Mike Broderick MD on 09/30/2020 4:49 PM PDT Station ID: [id number]
== END 2020-09-30 15:06 | disposition home or self-care (01) ==
LOC: DI 15:05
PROVIDERS: ATTEND Acupuncturist
DX: R10.9 Unspecified abdominal pain (principal); N20.0 Calculus of kidney; E03.9 Hypothyroidism, unspecified
CPT/HCPCS: 36415; 80053; 81001; 81003; 84443; 85025; 86140; 87086

== ENCOUNTER 2020-09-30 15:55 | Outpatient (CLI) | payer MEDICAID ==
[2020-09-30 16:14] LABS: BASOPHILS % (AUTO) 0.5 %; EOSINOPHILS # (AUTO) 0.1 10^3/uL (0.0-0.7); EOSINOPHILS % (AUTO) 1.5 %; HCT - HEMATOCRIT 41.5 % (37.0-47.0); HGB - HEMOGLOBIN 13.9 g/dL (12.0-16.0); LYMPHOCYTES # (AUTO) 2.3 10^3/uL (1.5-3.5); LYMPHOCYTES % (AUTO) 26.6 %; MEAN CORPUSCULAR HGB CONC 33.5 g/dL (32.0-36.0); MEAN CORPUSCULAR VOLUME 92.4 fL (81.0-99.0); MONOCYTES # (AUTO) 0.5 10^3/uL (0.0-1.0); MONOCYTES % (AUTO) 5.7 %; NEUTROPHILS # (AUTO) 5.5 10^3/uL (1.5-6.6); NEUTROPHILS % (AUTO) 65.5 %; PLT - PLATELET COUNT 342 10^3/uL (130-450); RED BLOOD COUNT 4.49 10^6/uL (4.20-5.40); RED CELL DISTRIBUTION WIDTH 11.4 % (12.0-15.0); WHITE BLOOD COUNT 8.5 x10^3/uL (4.8-10.8)
[2020-09-30 16:27] LABS: ALBUMIN 4.7 g/dL (3.2-5.5); ALBUMIN/GLOBULIN RATIO 1.5 (1.0-2.2); ALKALINE PHOSPHATASE 50 IU/L (42-121); ALT ALANINE AMINOTRANSFERASE 30 IU/L (10-60); AST ASPARTATE AMINOTRANSFERASE 24 IU/L (10-42); BILIRUBIN,TOTAL 0.9 mg/dL (0.2-1.0); BUN - BLOOD UREA NITROGEN 16 mg/dL (6-20); CALCIUM 9.6 mg/dL (8.5-10.3); CARBON DIOXIDE - CO2 28 mmol/L (21-32); CHLORIDE 95 mmol/L (101-111); CREATININE 0.7 mg/dL (0.4-1.0); GFR - MDRD 112 (>89); GLUCOSE 86 mg/dL (70-100); POTASSIUM 3.6 mmol/L (3.5-5.0); SODIUM 133 mmol/L (135-145); TOTAL PROTEIN 7.9 g/dL (6.7-8.2)
[2020-09-30 16:28] LABS: BILIRUBIN,URINE NEGATIVE (NEGATIVE); GLUCOSE, URINE (UA) NEGATIVE (NEGATIVE); KETONES,URINE (UA) NEGATIVE (NEGATIVE); LEUKOCYTE ESTERASE, URINE NEGATIVE (NEGATIVE); NITRITE,URINE NEGATIVE (NEGATIVE); OCCULT BLOOD,URINE NEGATIVE (NEGATIVE); PH,URINE 6.5 PH (5.0-7.5); PROTEIN,URINE NEGATIVE (NEGATIVE); UROBILINOGEN,URINE 0.2 (NORMAL) E.U./dL (NORMAL)
[2020-09-30 16:38] LABS: THYROID STIMULATING HORMONE 1.8 uIU/mL (0.34-5.60)
[2020-09-30 16:47] LABS: CLARITY,URINE CLEAR (CLEAR)
[2020-09-30 16:57] LABS: CRP - C-REACTIVE PROTEIN < 1.0 mg/dL (0-1.0)
== END 2020-09-30 15:56 | disposition home or self-care (01) ==
LOC: LAB 15:55
PROVIDERS: ATTEND Acupuncturist
DX: R10.9 Unspecified abdominal pain (principal); E03.9 Hypothyroidism, unspecified
CPT/HCPCS: 36415; 80053; 81001; 81003; 84443; 85025; 86140; 87086

== ENCOUNTER 2020-12-28 13:01 | Emergency (ER) | payer MEDICAID ==
[2020-12-28 13:22] VITALS: BP 114/69
[2020-12-28 13:48] LABS: BASOPHILS # (AUTO) 0.1 10^3/uL (0.0-0.1); BASOPHILS % (AUTO) 0.7 %; EOSINOPHILS # (AUTO) 0.2 10^3/uL (0.0-0.7); HCT - HEMATOCRIT 42.6 % (37.0-47.0); HGB - HEMOGLOBIN 14.5 g/dL (12.0-16.0); LYMPHOCYTES # (AUTO) 2.4 10^3/uL (1.5-3.5); MEAN CORPUSCULAR HEMOGLOBIN 30.9 pg (27.0-31.0); MEAN CORPUSCULAR VOLUME 90.8 fL (81.0-99.0); MEAN PLATELET VOLUME 9.9 fL (7.9-10.8); MONOCYTES # (AUTO) 0.3 10^3/uL (0.0-1.0); MONOCYTES % (AUTO) 4.3 %; NEUTROPHILS # (AUTO) 4.5 10^3/uL (1.5-6.6); NEUTROPHILS % (AUTO) 60.7 %; PLT - PLATELET COUNT 354 10^3/uL (130-450); RED BLOOD COUNT 4.69 10^6/uL (4.20-5.40); RED CELL DISTRIBUTION WIDTH 11.8 % (12.0-15.0); WHITE BLOOD COUNT 7.4 x10^3/uL (4.8-10.8)
[2020-12-28 13:57] LABS: CALCIUM 9.3 mg/dL (8.5-10.3); CREATININE 0.7 mg/dL (0.4-1.0); POTASSIUM 3.1 mmol/L (3.5-5.0)
--- NOTE | 2020-12-28 14:26 | ED Physician Documentation ---
History of Present Illness - Stated complaint Stated Complaint: TINGLING IN HANDS/FEET/DRY MOUTH - Chief complaint Chief Complaint: Neuro - History obtained from History obtained from: Patient - Additonal information Additional information: 40-year-old woman with no personal history of diabetes but a family history of same presents with 2 weeks of worsening polyuria, polydipsia, blurry vision and hand tingling. It is associated with dry mouth. Review of Systems Constitutional: reports: Fatigue. denies: Fever, Chills GI: denies: Nausea, Vomiting : reports: Frequency. denies: Dysuria PD PAST MEDICAL HISTORY - Past Medical History Past Medical History: Yes Cardiovascular: Other Respiratory: Sleep apnea Neuro: None, Other Endocrine/Autoimmune: HyPOthyroidism GI: Other MEDICAL CODING AUDITOR: Fibroids : Kidney stones HEENT: None Psych: Bipolar disorder, ADD/ADHD Musculoskeletal: Chronic back pain Derm: None Other Past Medical History: autism - Past Surgical History Past Surgical History: Yes General: Appendectomy /MEDICAL CODING AUDITOR: Hysterectomy - Present Medications Home Medications: Ambulatory Orders Medication Instructions Recorded Confirmed Blood Sugar Diagnostic [Glucometer 1 [facility] QID #120 strip 12/28/20 Strips] DULoxetine [Cymbalta] 30 mg PO DAILY 12/28/20 12/28/20 Dextroamphetamine/Amphetamine 20 mg PO DAILY 12/28/20 12/28/20 [Adderall 20 mg Tablet] Levothyroxine Sodium 50 mcg PO DAILY 12/28/20 12/28/20 [Levothyroxine] Potassium Chloride [Klor-Con 10] 10 meq PO DAILY #3 12/28/20 metFORMIN [Glucophage] 500 mg PO BIDWM #60 tablet 12/28/20 - Allergies Allergies/Adverse Reactions: Allergies Allergy/AdvReac Type Severity Reaction Status Date / Time No Known Drug Allergies Allergy Verified 12/28/20 13:13 - Social History Does the pt smoke?: No Smoking Status: Never smoker Does the pt drink ETOH?: Yes ETOH Use: Wine Does the pt have substance abuse?: Yes Substance Use and Type: Marijuana, CBD oil / Products - Immunizations Immunizations are current?: Yes PD ED PE NORMAL - Vitals Vital signs reviewed: Yes - General General: Alert and oriented X 3, No acute distress - HEENT HEENT: PERRL, EOMI - Neck Neck: Supple, no meningeal sign, No bony TTP - Cardiac Cardiac: RRR, No murmur - Respiratory Respiratory: No respiratory distress, Clear bilaterally - Abdomen Abdomen: Non tender - Derm Derm: No rash - Extremities Extremities: No edema, No calf tenderness / cord - Neuro Neuro: Alert and oriented X 3, Normal speech Results - Vitals Vitals: Vital Signs - 24 hr 12/28/20 13:13 Temperature 36.6 C Heart Rate 94 Respiratory 18 Rate Blood Pressure 114/69 O2 Saturation 98 Oxygen O2 Source Room air - Labs Labs: Laboratory Tests 12/28/20 12/28/20 13:40 13:40 WBC 7.4 RBC 4.69 Hgb 14.5 Hct 42.6 MCV 90.8 MCH 30.9 MCHC 34.0 RDW 11.8 L Plt Count 354 MPV 9.9 Neut # (Auto) 4.5 Lymph # (Auto) 2.4 [place] # (Auto) 0.3 Eos # (Auto) 0.2 Baso # (Auto) 0.1 Absolute Nucleated RBC 0.00 Nucleated RBC % 0.0 Sodium 135 Potassium 3.1 L Chloride 95 L Carbon Dioxide 30 Anion Gap 10.0 BUN 16 Creatinine 0.7 Estimated GFR (MDRD) 112 Glucose 156 H Calcium 9.3 PD MEDICAL DECISION MAKING - ED course ED course: 40-year-old woman who presents with polyuria, polydipsia, tingling in the hands and blurry vision, but a normal exam. Probably consistent with new onset type 2 diabetes. To fingerstick blood sugar here was 200 and in the lab it was 156. She was counseled on diet and exercise. We will start Metformin pending primary care follow-up. A1c pending on discharge. I will also prescribe a few days worth of potassium supplementation for the potassium of 3.1. Departure - Departure Disposition: Home, Self Care Clinical Impression: Type II diabetes mellitus Qualifiers: Diabetes mellitus senior care insulin use: without senior care use Diabetes mellitus complication status: with hyperglycemia Qualified Code(s): E11.65 - Type 2 diabetes mellitus with hyperglycemia Condition: Good Record reviewed to determine appropriate education?: Yes Instructions: Diabetes Type 2 Coping, Diabetes Type 2 Oral Meds Prescriptions: Blood Sugar Diagnostic [Glucometer Strips] 1 each [facility] QID #120 strip metFORMIN [Glucophage] 500 mg PO BIDWM #60 tablet Potassium Chloride [Klor-Con 10] 10 meq PO DAILY #3 Comments: Your fingerstick blood sugar today was 200, your blood sugar in the lab was 156, potassium low at 3.1. This is probably consistent with a new onset of at this point mild type 2 diabetes. I am starting low-dose Metformin and also 3 days worth of potassium supplement for the potassium of 3.1. I am prescribing new strips for your blood sugar monitor. Follow-up with your primary care physician within the month for recheck. Hemoglobin A1c is pending on discharge, you can look up results on the patient portal; go tp the hospital website at [email or web address], click on the my [facility] tab and sign up for the patient portal.
[2020-12-28 20:27] LABS: ESTIMATED AVERAGE GLUCOSE 105 mg/dL (70-100); HEMOGLOBIN A1c% 5.3 % (4.27-6.07)
== END 2020-12-28 15:14 | disposition home or self-care (01) ==
LOC: ED 13:01
DX: E11.65 Type 2 diabetes mellitus with hyperglycemia (principal); Z79.84 Long term (current) use of oral hypoglycemic drugs; E87.6 Hypokalemia; Z83.3 Family history of diabetes mellitus
CPT/HCPCS: 36415; 80048; 83036; 85025; 99283

== ENCOUNTER 2021-05-14 14:17 | Outpatient (CLI) | payer MEDICAID ==
[2021-05-14 19:24] LABS: THYROID STIMULATING HORMONE 2.08 uIU/mL (0.34-5.60)
[2021-05-14 19:52] LABS: FOLLICLE STIMULATING HORMONE 2.38 mIU/mL
[2021-05-14 20:13] LABS: ESTIMATED AVERAGE GLUCOSE 111 mg/dL (70-100); HEMOGLOBIN A1c% 5.5 % (4.27-6.07)
== END 2021-05-14 14:18 | disposition home or self-care (01) ==
LOC: LAB.S 14:17
PROVIDERS: ATTEND Acupuncturist
DX: R23.2 Flushing (principal); Z13.1 Encounter for screening for diabetes mellitus; E03.9 Hypothyroidism, unspecified
CPT/HCPCS: 36415; 82670; 83001; 83036; 84403; 84443

== ENCOUNTER 2021-07-26 13:48 | Outpatient (CLI) | payer MEDICAID ==
--- NOTE | 2021-07-26 15:40 | MRI Report ---
PROCEDURE: Brain W/O INDICATIONS: MEMORY LOSS TECHNIQUE: Noncontrast axial T1 spin echo, axial T2 fast spin echo, sagittal and axial FLAIR, coronal T2 fast sp in echo, axial gradient echo, axial diffusion and ADC through the brain. COMPARISON: None. FINDINGS: Image quality: Excellent. CSF Spaces: Basal cisterns are patent. No extra-axial fluid collections. Ventricles are normal in size and shape. Brain: No intracranial masses or hemorrhage. Anne/white matter interface is normal. Brainstem appe ars normal. Diffusion-weighted images demonstrate no acute ischemic insult. No chronic ischemic ins ults. Normal intravascular flow voids are present. Skull and face: Calvarium has normal marrow signal. Orbits appear normal. Sinuses: Sinuses and mastoids are clear. IMPRESSION: No acute intracranial abnormality. No recent infarct. No explanation for memory loss. Reviewed by: Davy Steele MD on 07/26/2021 3:38 PM PDT Approved by: Davy Steele MD on 07/26/2021 3:38 PM PDT Station ID: [id number]
== END 2021-07-26 13:49 | disposition home or self-care (01) ==
LOC: DI 13:48
PROVIDERS: ATTEND Psychiatry & Neurology Neurology
DX: R41.3 Other amnesia (principal)

== ENCOUNTER 2021-11-08 00:03 | Outpatient (CLI) | payer MEDICAID | END 2021-11-08 00:04 | disposition critical access hospital (66) | LOC: EMS 00:03 | DX: R10.30 Lower abdominal pain, unspecified (principal); R11.0 Nausea | CPT/HCPCS: A0425; A0427; A0999 ==

== ENCOUNTER 2021-11-08 00:39 | Emergency (ER) | payer MEDICAID ==
[2021-11-08] MEDS ORDERED: MORPHINE 10 MG/ML VIAL IVP STA (01:03)
[2021-11-08 01:29] LABS: BASOPHILS # (AUTO) 0.1 10^3/uL (0.0-0.1); BASOPHILS % (AUTO) 0.4 %; EOSINOPHILS # (AUTO) 0.1 10^3/uL (0.0-0.7); EOSINOPHILS % (AUTO) 0.4 %; HCT - HEMATOCRIT 38.4 % (37.0-47.0); HGB - HEMOGLOBIN 12.9 g/dL (12.0-16.0); LYMPHOCYTES # (AUTO) 1.2 10^3/uL (1.5-3.5); LYMPHOCYTES % (AUTO) 9.9 %; MEAN CORPUSCULAR HEMOGLOBIN 30.7 pg (27.0-31.0); MEAN CORPUSCULAR HGB CONC 33.6 g/dL (32.0-36.0); MEAN CORPUSCULAR VOLUME 91.4 fL (81.0-99.0); MEAN PLATELET VOLUME 10.5 fL (7.9-10.8); MONOCYTES # (AUTO) 0.3 10^3/uL (0.0-1.0); MONOCYTES % (AUTO) 2.6 %; NEUTROPHILS # (AUTO) 10.1 10^3/uL (1.5-6.6); NEUTROPHILS % (AUTO) 86.4 %; PLT - PLATELET COUNT 335 10^3/uL (130-450); RED CELL DISTRIBUTION WIDTH 11.9 % (12.0-15.0); VBG BASE EXCESS 1.4 mmol/L (-2 - +2); VBG HCO3 24.7 mmol/L (23-28); VBG OXYGEN SATURATION 68.5 % (60-80); VBG PCO2 34.7 mmHg (41-51); VBG PH 7.47 (7.31-7.41); VBG PO2 33.8 mmHg (25-47); VBG TOTAL CO2 25.8 mmol/L (24-29); WHITE BLOOD COUNT 11.7 x10^3/uL (4.8-10.8)
[2021-11-08 01:39] LABS: ALBUMIN/GLOBULIN RATIO 1.3 (1.0-2.2); ALKALINE PHOSPHATASE 46 IU/L (42-121); ALT ALANINE AMINOTRANSFERASE 24 IU/L (10-60); AST ASPARTATE AMINOTRANSFERASE 20 IU/L (10-42); BILIRUBIN,TOTAL 0.6 mg/dL (0.2-1.0); BUN - BLOOD UREA NITROGEN 21 mg/dL (6-20); CALCIUM 8.7 mg/dL (8.5-10.3); CARBON DIOXIDE - CO2 24 mmol/L (21-32); CHLORIDE 103 mmol/L (101-111); CREATININE 0.8 mg/dL (0.4-1.0); GFR - MDRD 96 (>89); GLUCOSE 122 mg/dL (70-100); LIPASE 33 U/L (22-51); POTASSIUM 3.4 mmol/L (3.5-5.0); SODIUM 137 mmol/L (135-145); TOTAL PROTEIN 7.1 g/dL (6.7-8.2)
[2021-11-08 01:41] LABS: KETONES, SERUM (ACETEST) NEGATIVE (NEGATIVE)
[2021-11-08 03:45] LABS: BILIRUBIN,URINE NEGATIVE (NEGATIVE); CLARITY,URINE CLEAR (CLEAR); GLUCOSE, URINE (UA) NEGATIVE (NEGATIVE); KETONES,URINE (UA) 15 mg/dL (NEGATIVE); LEUKOCYTE ESTERASE, URINE NEGATIVE (NEGATIVE); NITRITE,URINE NEGATIVE (NEGATIVE); OCCULT BLOOD,URINE LARGE (NEGATIVE); PROTEIN,URINE NEGATIVE (NEGATIVE); UROBILINOGEN,URINE 0.2 (NORMAL) E.U./dL (NORMAL)
[2021-11-08 03:54] LABS: BACTERIA,URINE Rare /HPF (None Seen); RBC,URINE TNTC /HPF (0-5); SQUAMOUS EPITHELIAL CELL,UR FEW Squamous (<= Few); WBC,URINE 0-3 /HPF (0-5)
--- NOTE | 2021-11-08 04:34 | ED Physician Documentation ---
History of Present Illness - Stated complaint Stated Complaint: ABD PX - Chief complaint Chief Complaint: Abd Pain - History obtained from History obtained from: Patient - Additonal information Additional information: 41-year-old woman with history of kidney stones, diabetes, hypothyroidism, mobley disease, andi danlos, autism, bipolar, p/w burning RLQ > LLQ pain that has been constant, sudden onset, waxing/waning, a/w nausea but no vomiting, worse with staying still. patient concerned she has food poisoning or intolerance to some chicken with soybean oil she had yesterday. denies fever, diarrhea, urinary sx. Review of Systems Ten Systems: 10 systems reviewed and negative Constitutional: denies: Fever, Chills GI: reports: Abdominal Pain, Nausea. denies: Vomiting PD PAST MEDICAL HISTORY - Past Medical History Past Medical History: Yes Cardiovascular: Other Respiratory: Sleep apnea Neuro: None, Other Endocrine/Autoimmune: HyPOthyroidism GI: Other ROUTEMAN: Fibroids : Kidney stones HEENT: None Psych: Bipolar disorder, ADD/ADHD Musculoskeletal: Chronic back pain Derm: None - Past Surgical History Past Surgical History: Yes General: Appendectomy /ROUTEMAN: Hysterectomy - Present Medications Home Medications: Ambulatory Orders Medication Instructions Recorded Confirmed Blood Sugar Diagnostic [Glucometer 1 each MC QID #120 strip 12/28/20 11/08/21 Strips] Levothyroxine Sodium 50 mcg PO DAILY 12/28/20 11/08/21 [Levothyroxine] Potassium Chloride [Klor-Con 10] 10 meq PO DAILY #3 12/28/20 11/08/21 metFORMIN [Glucophage] 500 mg PO BIDWM #60 tablet 12/28/20 11/08/21 Gabapentin [Neurontin] 300 mg PO TID 11/08/21 11/08/21 Nortriptyline [Pamelor] 10 mg PO DAILY 11/08/21 11/08/21 Oxycodone HCl/Acetaminophen 1 each PO Q4H PRN #10 tablet 11/08/21 [Percocet 10-325 mg Tablet] - Allergies Allergies/Adverse Reactions: Allergies Allergy/AdvReac Type Severity Reaction Status Date / Time Penicillins Allergy Unknown Verified 11/08/21 00:48 - Social History Does the pt smoke?: No Smoking Status: Never smoker Does the pt drink ETOH?: Yes Does the pt have substance abuse?: Yes - Immunizations Immunizations are current?: Yes PD ED PE NORMAL - Vitals Vital signs reviewed: Yes - General General: Alert and oriented X 3, No acute distress, Well developed/nourished - HEENT HEENT: Atraumatic, PERRL, EOMI - Neck Neck: Supple, no meningeal sign - Cardiac Cardiac: RRR - Respiratory Respiratory: No respiratory distress, Clear bilaterally - Abdomen Abdomen: Other (discomfort in BL LQ) - Derm Derm: Normal color, Warm and dry - Extremities Extremities: No deformity - Neuro Neuro: Alert and oriented X 3, No motor deficit Results - Vitals Vitals: Vital Signs - 24 hr 11/08/21 11/08/21 11/08/21 00:48 02:51 04:00 Temperature 37.1 C 37 C Heart Rate 88 89 90 Respiratory 20 16 17 Rate Blood Pressure 151/93 H 152/99 H 151/99 H O2 Saturation 100 97 99 11/08/21 11/08/21 06:00 07:08 Temperature 37 C Heart Rate 92 90 Respiratory 16 16 Rate Blood Pressure 159/115 H 155/90 H O2 Saturation 97 98 Oxygen O2 Source Room air - Labs Labs: Laboratory Tests 11/08/21 11/08/21 11/08/21 01:20 01:20 01:20 WBC 11.7 H RBC 4.20 Hgb 12.9 Hct 38.4 MCV 91.4 MCH 30.7 MCHC 33.6 RDW 11.9 L Plt Count 335 MPV 10.5 Neut # (Auto) 10.1 H Lymph # (Auto) 1.2 L Bowman # (Auto) 0.3 Eos # (Auto) 0.1 Baso # (Auto) 0.1 Absolute Nucleated RBC 0.00 Nucleated RBC % 0.0 VBG pH 7.470 H VBG pCO2 34.7 L VBG pO2 33.8 VBG HCO3 24.7 VBG Total CO2 25.8 VBG O2 Saturation 68.5 VBG Base Excess 1.4 Sodium 137 Potassium 3.4 L Chloride 103 Carbon Dioxide 24 Anion Gap 10.0 BUN 21 H Creatinine 0.8 Estimated GFR (MDRD) 96 Glucose 122 H Lactic Acid Calcium 8.7 Total Bilirubin 0.6 AST 20 ALT 24 Alkaline Phosphatase 46 Total Protein 7.1 Albumin 4.0 Globulin 3.1 Albumin/Globulin Ratio 1.3 Lipase 33 Urine Color Urine Clarity Urine pH Ur Specific [place] Urine Protein Urine Glucose (UA) Urine Ketones Urine Occult Blood Urine Nitrite Urine Bilirubin Urine Urobilinogen Ur Leukocyte Esterase Urine RBC Urine WBC Ur Squamous Epith Cells Urine Bacteria Ur Microscopic Review Urine Culture Comments Serum Ketones NEGATIVE 11/08/21 11/08/21 01:20 03:40 WBC RBC Hgb Hct MCV MCH MCHC RDW Plt Count MPV Neut # (Auto) Lymph # (Auto) Bowman # (Auto) Eos # (Auto) Baso # (Auto) Absolute Nucleated RBC Nucleated RBC % VBG pH VBG pCO2 VBG pO2 VBG HCO3 VBG Total CO2 VBG O2 Saturation VBG Base Excess Sodium Potassium Chloride Carbon Dioxide Anion Gap BUN Creatinine Estimated GFR (MDRD) Glucose Lactic Acid 1.3 Calcium Total Bilirubin AST ALT Alkaline Phosphatase Total Protein Albumin Globulin Albumin/Globulin Ratio Lipase Urine Color YELLOW Urine Clarity CLEAR Urine pH 7.0 Ur Specific [place] 1.020 Urine Protein NEGATIVE Urine Glucose (UA) NEGATIVE Urine Ketones 15 H Urine Occult Blood LARGE H Urine Nitrite NEGATIVE Urine Bilirubin NEGATIVE Urine Urobilinogen 0.2 (NORMAL) Ur Leukocyte Esterase NEGATIVE Urine RBC TNTC H Urine WBC 0-3 Ur Squamous Epith Cells FEW Squamous Urine Bacteria Rare Ur Microscopic Review INDICATED Urine Culture Comments NOT INDICATED Serum Ketones PD MEDICAL DECISION MAKING - ED course ED course: 41-year-old woman presents with hematuria and kidney stones with 7 mm stone in the distal right ureter. mild hydronephrosis. no signs of uti. kidney function normal. plan to f/u outpatient with urology and with PCP regarding incidental findings. return precautions given. pain meds sent to pharmacy with education given about safe narcotic use. Departure - Departure Disposition: 01 Home, Self Care Clinical Impression: Kidney stones Condition: Good Instructions: Kidney Stones Follow-Up: Amina Bautista MD [Physician No Access] - Prescriptions: Oxycodone HCl/Acetaminophen [Percocet 10-325 mg Tablet] 1 each PO Q4H PRN #10 tablet PRN Reason: Pain Comments: You were seen in the ED for evaluation of abdominal pain and found to have kidney stones. You have a large kidney stone (7mm diameter) that is about to enter your bladder on the right side. You also have a fatty liver and small spot on the liver that may require follow up testing. Please follow up with your primary provider in regards to this and also for referral to urology (Dr. Bautista). Drink lots of water and take ibuprofen 600mg every 6 hours as needed for pain. I am also sending a prescription for percoset to [facility] in [place]. return to the ED if you develop fever, have any new or worsening symptoms or other concerns.
[2021-11-08 07:09] VITALS: BP 155/90
--- NOTE | 2021-11-08 08:30 | CT Report ---
PROCEDURE: Abdomen/Pelvis WO INDICATIONS: hematuria, abdominal pain TECHNIQUE: Noncontrast 5 mm thick sections acquired from the diaphragms to the symphysis. 5 mm coronal and sagi ttal reformats were then performed. For radiation dose reduction, the following was used: automated exposure control, adjustment of mA and/or kV according to patient size. COMPARISON: Renal ultrasound dated 05/31/[address] of pelvis dated 06/20/2019. CT KUB dated 10/09/2017 . FINDINGS: Image quality: Excellent. ABDOMEN: Lung bases: Lung bases are clear. Heart size is normal. Solid organs: Liver and spleen are normal in size. Subtle 9 mm hypodense area involving anterior as pect of right hepatic lobe anterior segment is seen series 2 image 24. Moderate hepatic steatosis is seen. Gallbladder is within normal limits. Pancreas is normal in contours. No adrenal nodules. Kid neys are normal in size. Multiple nonobstructing stones are seen in bilateral kidneys measures up to 5 mm in size in mid to lower pole of right kidney and 2 mm in size in midpole of left kidney. There i s mild to moderate right-sided hydronephrosis and perinephric fat stranding. Right proximal to mid hy droureter is also seen. There is a 7 mm stone seen in distal right ureter and measures 766 Hounsfield unit in density. No left-sided hydronephrosis or hydroureter. Peritoneum and bowel: Unenhanced bowel loops demonstrate normal wall thickness and caliber. No free fluid or air. Nodes and vessels: No retroperitoneal or mesenteric adenopathy by size criteria. Aorta and inferior vena cava are normal in caliber. Miscellaneous: No ventral hernias. PELVIS: Genitourinary: Bladder wall thickness is normal. Miscellaneous: No inguinal hernias or adenopathy. Bones: No suspicious bony lesions. No vertebral body compression fractures. IMPRESSION: 1. 7 mm right distal ureteral stone with mild to moderate right-sided hydronephrosis and hydroureter as described above. Bilateral nonobstructing renal calculi. No left-sided hydronephrosis or hydrouret er. Normal-appearing urinary bladder. 2. No bowel obstruction or abnormal bowel wall thickening. No free fluid of free air. 3. Hepatic steatosis. Subtle 9 mm hypodensity in anterior periphery of right hepatic lobe and is too small to adequately characterize. This likely represent benign process such as a small hepatic cyst. No significant discrepancies from preliminary reading. Reviewed by: Jaguar Garcia MD on 11/08/2021 8:29 AM PDT Approved by: Jaguar Garcia MD on 11/08/2021 8:29 AM PDT Station ID: [id number]
== END 2021-11-08 07:08 | disposition home or self-care (01) ==
LOC: EDUNIT# → ED 00:39
DX: N13.2 Hydronephrosis with renal and ureteral calculous obstruction (principal)
CPT/HCPCS: 36415; 80053; 81001; 81003; 82009; 82803; 83605; 83690; 85025; 87086; 96374; 99283

== ENCOUNTER 2021-11-16 17:59 | Outpatient (CLI) | payer MEDICAID ==
--- NOTE | 2021-11-17 09:07 | MRI Report ---
PROCEDURE: Lumbar Spine W/O INDICATIONS: LOW BACK PAIN TECHNIQUE: Noncontrast sagittal T1 spin echo and T2 fast echo, sagittal STIR, axial T1 and T2 fast spin echo thr ough the lumbar spine. In cases with scoliosis, additional coronal T2 fast spin echo may be performe d. COMPARISON: None. FINDINGS: Normal lumbar vertebral body height, alignment, and signal intensity. No suspicious focal marrow sign al abnormality or bone marrow edema. Normal position and appearance of the conus, terminating at the L1-L2 level. Regional prevertebral and paraspinous soft tissues demonstrate no significant abnormalit y. From T12-L1 through L4-L5, there is no significant spinal canal stenosis, neural foraminal stenosis, more degenerative change. At L5-S1 there is a large disc extrusion measuring approximately 1.2 x 1.3 cm AP by transverse and 1. 3 cm craniocaudal. The extruded disc material significantly displaces the right greater than left S1 nerve roots and both subarticular zones, producing suspected impingement of the right S1 nerve roots. There is no neural foraminal stenosis. IMPRESSION: Large disc extrusion at L5-S1 producing suspected impingement of the descending right S1 nerve roots. Correlate for any corresponding radicular symptoms. Reviewed by: Gabriele Rousseau MD on 11/17/2021 9:06 AM PDT Approved by: Gabriele Rousseau MD on 11/17/2021 9:06 AM PDT Station ID: [id number]
== END 2021-11-16 18:00 | disposition home or self-care (01) ==
LOC: DI 17:59
PROVIDERS: ATTEND Psychiatry & Neurology Neurology
DX: M51.17 Intervertebral disc disorders with radiculopathy, lumbosacral region (principal)

== ENCOUNTER 2021-11-25 14:39 | Outpatient (CLI) | payer MEDICAID ==
[2021-11-25 16:28] LABS: THYROID STIMULATING HORMONE 3.56 uIU/mL (0.34-5.60)
--- NOTE | 2021-11-25 16:57 | Ultrasound Report ---
PROCEDURE: Retroperitoneal INDICATIONS: URETEROLITHIASIS TECHNIQUE: Real-time scanning was performed of the kidneys and bladder, with image documentation. COMPARISON: CT abdomen/pelvis 11/08/2021 FINDINGS: Kidneys: Kidneys are normal in size. Right kidney measures 10.4 cm long; left kidney measures 9.8 c m long. Right renal cortical thickness is 1.3 cm; left renal cortical thickness is 1.6 cm. Renal co rtical echotexture is normal. No suspicious solid mass lesions. Multiple shadowing calculi are seen at the inferior pole the right kidney, largest which measures up to 11 mm. Additional calculus measu ring approximately 10 mm is seen at the distal right ureter in the region of the ureterovesicular sada ction. Mild right hydronephrosis. No left renal calculus or hydronephrosis. Bladder: Pre-void bladder volume is 334 mL. Post-void residual is 28 mL. Pre-void images demonstra te no intraluminal masses or stones. On pre-void images, bilateral ureteral jets are noted with colo r Doppler interrogation. (Of note, ureteral jets may not be detectable in up to 25% of cases due to insufficient differences in specific gravity between ureteral and bladder urine). Miscellaneous: No free pelvic fluid. The included liver is diffusely hyperechoic. IMPRESSION: 1.Right distal ureteral 10 mm calculus in the region of the ureterovesicular junction appears similar when compared to the CT from 11/08/2021. 2.Mild right hydronephrosis. 3.Additional nonobstructing right renal calculi. 4.Incidental note is made of hepatic steatosis. Reviewed by: Felipe Gill MD on 11/25/2021 4:55 PM PDT Approved by: Felipe Gill MD on 11/25/2021 4:55 PM PDT Station ID: [id number]
== END 2021-11-25 14:40 | disposition home or self-care (01) ==
LOC: DI 14:39
PROVIDERS: ATTEND Urology
DX: N13.2 Hydronephrosis with renal and ureteral calculous obstruction (principal); R53.83 Other fatigue
CPT/HCPCS: 36415; 83970; 84443

== ENCOUNTER 2021-12-20 04:53 | Outpatient (CLI) | payer MEDICAID | END 2021-12-20 04:54 | disposition short-term general hospital (02) | LOC: EMS 04:53 | DX: N20.0 Calculus of kidney (principal); R10.9 Unspecified abdominal pain | CPT/HCPCS: A0425; A0427; A0999 ==

== ENCOUNTER 2022-01-03 16:38 | Emergency (ER) | payer MEDICAID ==
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
[2022-01-03 20:11] VITALS: BP 138/88
== END 2022-01-03 20:54 | disposition home or self-care (01) ==
LOC: ED 16:38
DX: R10.2 Pelvic and perineal pain (principal); L29.2 Pruritus vulvae; Z98.890 Other specified postprocedural states
CPT/HCPCS: 99281

== ENCOUNTER 2022-07-17 13:54 | Outpatient (CLI) | payer MEDICAID ==
--- NOTE | 2022-07-17 16:47 | MRI Report ---
PROCEDURE: LUMBAR SPINE WO INDICATIONS: LUMBAR DISC DEGENERATIVE TECHNIQUE: Noncontrast sagittal T1 spin echo and T2 fast echo, sagittal STIR, axial T1 and T2 fast spin echo thr ough the lumbar spine. In cases with scoliosis, additional coronal T2 fast spin echo may be performe d. COMPARISON: Lumbar spine MRI 11/16/2021 FINDINGS: Image quality: Excellent. Transitional lumbosacral anatomy is noted with a rudimentary disc space at the S1-2 level. The first nonrib-bearing vertebral body is designated as L1 for this exam. This is in keeping with the [employer] system used on the MRI from 11/16/2021. Alignment and Curvature: There is normal bony alignment. Bone Marrow: Marrow is of normal overall signal. Mild Modic type I and type II degenerative changes surrounding the L5-S1 disc space. No acute vertebral body compression fractures. Spinal Cord: Conus medullaris terminates at the L2 level. Visualized cord demonstrates normal signa l and size. Paraspinous Soft Tissues: No paravertebral masses. T12-L1: No significant spinal canal stenosis or neuroforaminal narrowing. L1-L2: No significant spinal canal stenosis or neuroforaminal narrowing. L2-L3: No significant spinal canal stenosis or neuroforaminal narrowing. L3-L4: No significant spinal canal stenosis or neuroforaminal narrowing. L4-L5: Disc desiccation and mild circumferential disc bulging, which results in mild narrowing of t he bilateral neural foramina without significant spinal canal stenosis. L5-S1: There is loss of disc space height with central disc extrusion measuring approximately 13 x 7 mm on axial images. There appears to be some disc material extending inferiorly posterior to the S1 vertebral body over a craniocaudal length of 25 mm. The disc material appears to have increased in T 2-weighted signal intensity within the paired to the prior MRI. There is mild bilateral facet hypertr ophy. There is mild narrowing of the thecal sac. Extruded disc material abuts the traversing right S1 nerve root in the right lateral recess without displacement as seen on the prior MRI. More inferior to this material is also seen abutting the right S2 nerve roots, which is new when compared to the pr ior MRI. Mild bilateral neural foraminal narrowing is seen. IMPRESSION: At L5-S1, a central to right paracentral disc extrusion has mildly decreased in axial dimensions when compared to the MRI from 11/16/2021, but there appears to be increased disc material extending infer iorly posterior to the S1 vertebral body. Disc material abuts the right S1 and S2 nerve roots in the right lateral recess, although nerve root displacement is no longer seen. Reviewed by: Felipe Gill MD on 07/17/2022 4:45 PM PDT Approved by: Felipe Gill MD on 07/17/2022 4:45 PM PDT Station ID: [id number]
== END 2022-07-17 13:55 | disposition home or self-care (01) ==
LOC: DI 13:54
PROVIDERS: ATTEND Orthopaedic Surgery
DX: M51.36 Other intervertebral disc degeneration, lumbar region (principal); M48.062 Spinal stenosis, lumbar region with neurogenic claudication; M51.17 Intervertebral disc disorders with radiculopathy, lumbosacral region; M47.27 Other spondylosis with radiculopathy, lumbosacral region; M48.07 Spinal stenosis, lumbosacral region

== ENCOUNTER 2022-09-01 08:00 | Outpatient (CLI) | payer MEDICAID | END 2022-09-01 23:59 | disposition home or self-care (01) | LOC: LAB.S 08:00 | PROVIDERS: ATTEND Registered Nurse | DX: N20.0 Calculus of kidney (principal) | CPT/HCPCS: 87086 ==

== ENCOUNTER 2022-09-05 11:36 | Emergency (ER) | payer MEDICAID ==
--- OUTSIDE RECORDS SUMMARY | 2022-09-05 11:47 | EXTERNAL MEDICAL SUMMARY RPT | Continuity of Care Document ---
Author Name Unknown Address [address] [place] [address] Phone Organization [facility] Address [address] [place] [address] Phone Care Team Providers Care Quality Engineer Medical Device Name Role Phone Unavailable Unavailable Unavailable Fly Niesha Le Unavailable Unavailable Medications date description facility 2022-09-02 00:00 nortriptyline [facility] 2022-09-04 00:00 nortriptyline [facility] 2022-09-02 00:00 propranolol [facility] 2022-09-04 00:00 propranolol [facility] 2022-09-01 00:00 ondansetron [facility] 2022-09-02 00:00 oxycodone [facility] 2022-09-04 00:00 oxycodone [facility] 2022-09-02 00:00 levothyroxine [facility] 2022-09-04 00:00 levothyroxine [facility] 2022-09-01 00:00 ONDANSETRON [facility] 2022-09-01 00:00 ondansetron [facility] 2022-09-02 00:00 oxycodone [facility] 2022-09-04 00:00 oxycodone [facility] 2022-09-02 00:00 levothyroxine [facility] 2022-09-04 00:00 levothyroxine [facility] 2022-09-01 00:00 tamsulosin [facility] [place] 2022-09-02 00:00 nortriptyline [facility] [place] 2022-09-04 00:00 nortriptyline [facility] [place] 2022-09-02 00:00 nortriptyline [facility] [place] 2022-09-04 00:00 nortriptyline [facility] [place] 2022-09-02 00:00 metformin [facility] [place] 2022-09-04 00:00 metformin [facility] [place] 2022-09-02 00:00 levothyroxine [facility] [place] 2022-09-04 00:00 levothyroxine [facility] [place] 2022-09-02 00:00 loratadine [facility] [place] 2022-09-04 00:00 loratadine [facility] [place] 2022-09-02 00:00 metformin [facility] [place] 2022-09-04 00:00 metformin [facility] [place] 2022-09-02 00:00 oxycodone [facility] [place] 2022-09-04 00:00 oxycodone [facility] [place] 2022-09-02 00:00 loratadine [facility] [place] 2022-09-04 00:00 loratadine [facility] [place] 2022-09-02 00:00 rizatriptan [facility] [place] 2022-09-04 00:00 rizatriptan [facility] [place] 2022-09-02 00:00 sumatriptan succinate [facility]In [facility] [place] 2022-09-04 00:00 sumatriptan succinate [facility]In [facility] [place] 2022-09-02 00:00 propranolol [facility] [place] 2022-09-04 00:00 propranolol [facility] 2022-09-02 00:00 sumatriptan succinate [facility]In [facility] [place] 2022-09-04 00:00 sumatriptan succinate [facility] 2022-09-02 00:00 loratadine [facility] 2022-09-04 00:00 loratadine [facility] 2022-09-01 00:00 ondansetron [facility] [place] 2022-09-01 00:00 tamsulosin [facility] [place] 2022-09-02 00:00 dexmethylphenidate [facility] [place] 2022-09-04 00:00 dexmethylphenidate [facility] [place] 2022-09-02 00:00 metformin [facility] [place] 2022-09-04 00:00 metformin [facility] [place] 2022-09-02 00:00 nortriptyline [facility] [place] 2022-09-04 00:00 nortriptyline [facility] [place] 2022-09-02 00:00 loratadine [facility] 2022-09-04 00:00 loratadine [facility] [place] 2022-09-02 00:00 dexmethylphenidate [facility] [place] 2022-09-04 00:00 dexmethylphenidate [facility] [place] 2022-09-02 00:00 sumatriptan succinate [facility]In [facility] 2022-09-04 00:00 sumatriptan succinate [facility] 2022-09-02 00:00 rizatriptan [facility] 2022-09-04 00:00 rizatriptan [facility] [place] 2022-09-01 00:00 tamsulosin [facility] [place] 2022-09-01 00:00 ondansetron [facility] [place] 2022-09-02 00:00 oxycodone [facility] [place] 2022-09-04 00:00 oxycodone [facility] [place] 2022-09-02 00:00 rizatriptan [facility] [place] 2022-09-04 00:00 rizatriptan [facility] [place] 2022-09-02 00:00 sumatriptan succinate [facility]In [facility] [place] 2022-09-04 00:00 sumatriptan succinate [facility]In [facility] [place] 2022-09-02 00:00 rizatriptan [facility] [place] 2022-09-04 00:00 rizatriptan [facility] [place] 2022-09-02 00:00 dexmethylphenidate [facility] [place] 2022-09-04 00:00 dexmethylphenidate [facility] [place] 2022-09-02 00:00 propranolol [facility] [place] 2022-09-04 00:00 propranolol [facility] [place] 2022-09-01 00:00 KETOROLAC TROMETHAMINE [facility] [place] 2022-09-02 00:00 metformin [facility] [place] 2022-09-04 00:00 metformin [facility] [place] 2022-09-01 00:00 tamsulosin [facility] [place] 2022-09-02 00:00 propranolol [facility] [place] 2022-09-04 00:00 propranolol [facility] [place] 2022-09-02 00:00 dexmethylphenidate [facility] [place] 2022-09-04 00:00 dexmethylphenidate [facility] [place] 2022-09-02 00:00 levothyroxine [facility] [place] 2022-09-04 00:00 levothyroxine [facility] Problems date description facility 2022-09-01 00:00 Blood in urine [facility] [place] 2022-09-01 00:00 Hematuria, unspecified [facility] Procedures date description facility 2022-09-01 00:00 Visit Code Hold [facility] Results/Labs test date facility value unit notes Social History date description facility 2022-09-01 00:00 Never smoker [facility] [place] Vital Signs date measurement value units 2022-09-01 00:00 BMI 33.19 kg/m2 2022-09-01 00:00 BP_diastolic 80 mmHg 2022-09-01 00:00 BP_systolic 110 mmHg 2022-09-01 00:00 heart_rate 99 /min 2022-09-01 00:00 height_metric 154.94 cm 2022-09-01 00:00 height_standard 61 in 2022-09-01 00:00 respiration_rate 16 /min 2022-09-01 00:00 temperature_metric 36.5 C 2022-09-01 00:00 temperature_standard 97.7 F 2022-09-01 00:00 weight_metric 79.38 kg 2022-09-01 00:00 weight_standard 175 lb
[2022-09-05 11:52] VITALS: BP 122/87
[2022-09-05 12:12] LABS: BASOPHILS # (AUTO) 0.1 10^3/uL (0.0-0.1); BASOPHILS % (AUTO) 0.6 %; EOSINOPHILS # (AUTO) 0.1 10^3/uL (0.0-0.7); EOSINOPHILS % (AUTO) 1.4 %; HCT - HEMATOCRIT 43.2 % (37.0-47.0); HGB - HEMOGLOBIN 14.9 g/dL (12.0-16.0); LYMPHOCYTES % (AUTO) 23.6 %; MEAN CORPUSCULAR HEMOGLOBIN 30.6 pg (27.0-31.0); MEAN CORPUSCULAR HGB CONC 34.5 g/dL (32.0-36.0); MEAN CORPUSCULAR VOLUME 88.7 fL (81.0-99.0); MEAN PLATELET VOLUME 10.1 fL (7.9-10.8); MONOCYTES # (AUTO) 0.4 10^3/uL (0.0-1.0); MONOCYTES % (AUTO) 4.3 %; NEUTROPHILS # (AUTO) 5.9 10^3/uL (1.5-6.6); PLT - PLATELET COUNT 379 10^3/uL (130-450); RED BLOOD COUNT 4.87 10^6/uL (4.20-5.40); RED CELL DISTRIBUTION WIDTH 11.6 % (12.0-15.0); WHITE BLOOD COUNT 8.4 x10^3/uL (4.8-10.8)
[2022-09-05 12:32] LABS: ALBUMIN 4.6 g/dL (3.2-5.5); ALBUMIN/GLOBULIN RATIO 1.5 (1.0-2.2); BILIRUBIN,TOTAL 0.7 mg/dL (0.2-1.0); CALCIUM 9.8 mg/dL (8.5-10.3); CREATININE 1.1 mg/dL (0.6-1.3); POTASSIUM 3.8 mmol/L (3.5-4.5); TOTAL PROTEIN 7.7 g/dL (6.4-8.9)
== END 2022-09-05 13:35 | disposition left against medical advice (07) ==
LOC: ED 11:36
DX: Z53.21 Procedure and treatment not carried out due to patient leaving prior to being seen by health care provider (principal)
CPT/HCPCS: 36415; 80053; 83690; 85025

== ENCOUNTER 2022-09-09 10:04 | Outpatient (CLI) | payer MEDICAID | END 2022-09-09 10:05 | disposition home or self-care (01) | LOC: LAB 10:04 | PROVIDERS: ATTEND Registered Nurse | DX: N20.0 Calculus of kidney (principal) | CPT/HCPCS: 87086 ==

== ENCOUNTER 2022-09-09 11:35 | Outpatient (CLI) | payer MEDICAID ==
[2022-09-09] MEDS ORDERED: iohexoL-300 100 ML VIAL IVP ONE (13:31)
--- NOTE | 2022-09-09 16:20 | CT Report ---
PROCEDURE: IVP INDICATIONS: HEMATURIA CONTRAST: 140ml omni 300 TECHNIQUE: After the administration of intravenous contrast, 5 mm thick sections acquired from the diaphragms to the symphysis. 5 mm thick coronal and sagittal reformats were acquired. For radiation dose reducti on, the following was used: automated exposure control, adjustment of mA and/or kV according to tiffany ent size. COMPARISON: 11/08/2021 FINDINGS: Image quality: Excellent. Urinary system: Both kidneys are normal in size. Nonobstructing nephroureteral calculi bilaterally. No obstructing calculi. No hydronephrosis or nephrolithiasis on pre-contrast images. No solid masses or complex cysts which require follow up. The opacified renal calyces and ureters appear normal, wit hout filling defect. Bladder wall thickness is normal, accounting for underdistention. No calcified bladder stones. No filling defect within the opacified bladder. On the right side there is a duplex collecting system which converges in the distal ureter with a single normal insertion into the bladde r. OTHER Lung bases and heart: Unremarkable. Liver: The liver has low density consistent with hepatic steatosis. Subcentimeter hypodensities in th e right lobe are indeterminate but likely small cysts, unchanged. Gallbladder and biliary tree: The gallbladder is normal. Spleen: No splenomegaly. Pancreas: No pancreatic ductal dilation. Adrenals: No adrenal nodule. Bowel and peritoneum: No bowel distension. No pathologic free fluid. Abdominal Lymph nodes: No central or retroperitoneal adenopathy. Vessels: Unremarkable. Reproductive organs: Unremarkable. Pelvic Lymph nodes: Unremarkable. Bones: No aggressive osseous abnormality. Other: None. IMPRESSION: 1. No obstructing calculi. Bilateral nonobstructing nephroureteral calculi. 2. No filling defects on delayed phase imaging. 3. No enhancing solid masses. 4. Hepatic steatosis. Reviewed by: Chino Mendez on 09/09/2022 4:18 PM PDT Approved by: Chino Mendez on 09/09/2022 4:18 PM PDT Station ID: [id number]
== END 2022-09-09 11:36 | disposition home or self-care (01) ==
LOC: DI 11:35
PROVIDERS: ATTEND Registered Nurse
DX: R10.30 Lower abdominal pain, unspecified (principal); R34 Anuria and oliguria; N20.0 Calculus of kidney; K76.0 Fatty (change of) liver, not elsewhere classified
CPT/HCPCS: 74178; 87086; Q9967

== ENCOUNTER 2022-09-13 07:00 | Outpatient (CLI) | payer MEDICAID ==
[2022-09-13 14:46] LABS: BASOPHILS # (AUTO) 0.1 10^3/uL (0.0-0.1); BASOPHILS % (AUTO) 0.6 %; EOSINOPHILS # (AUTO) 0.1 10^3/uL (0.0-0.7); EOSINOPHILS % (AUTO) 1.4 %; HCT - HEMATOCRIT 46.2 % (37.0-47.0); HGB - HEMOGLOBIN 15.5 g/dL (12.0-16.0); LYMPHOCYTES # (AUTO) 2.1 10^3/uL (1.5-3.5); LYMPHOCYTES % (AUTO) 24.1 %; MEAN CORPUSCULAR HEMOGLOBIN 30.2 pg (27.0-31.0); MEAN CORPUSCULAR HGB CONC 33.5 g/dL (32.0-36.0); MEAN CORPUSCULAR VOLUME 90.1 fL (81.0-99.0); MEAN PLATELET VOLUME 10.9 fL (7.9-10.8); MONOCYTES # (AUTO) 0.4 10^3/uL (0.0-1.0); NEUTROPHILS # (AUTO) 5.9 10^3/uL (1.5-6.6); NEUTROPHILS % (AUTO) 68.8 %; PLT - PLATELET COUNT 437 10^3/uL (130-450); RED BLOOD COUNT 5.13 10^6/uL (4.20-5.40); RED CELL DISTRIBUTION WIDTH 11.9 % (12.0-15.0); WHITE BLOOD COUNT 8.6 x10^3/uL (4.8-10.8)
[2022-09-13 15:12] LABS: BILIRUBIN,URINE NEGATIVE (NEGATIVE); GLUCOSE, URINE (UA) NEGATIVE (NEGATIVE); KETONES,URINE (UA) NEGATIVE (NEGATIVE); LEUKOCYTE ESTERASE, URINE NEGATIVE (NEGATIVE); NITRITE,URINE NEGATIVE (NEGATIVE); OCCULT BLOOD,URINE NEGATIVE (NEGATIVE); PROTEIN,URINE NEGATIVE (NEGATIVE); UROBILINOGEN,URINE 0.2 (NORMAL) E.U./dL (NORMAL)
[2022-09-13 15:13] LABS: CLARITY,URINE CLEAR (CLEAR)
[2022-09-13 15:38] LABS: BACTERIA,URINE Rare /HPF (None Seen); MUCUS,URINE Marked Strands; RBC,URINE None Seen /HPF (0-5); SQUAMOUS EPITHELIAL CELL,UR FEW Squamous (<= Few); WBC,URINE 0-3 /HPF (0-5); YEAST,URINE PRESENT
[2022-09-13 16:05] LABS: ALBUMIN 4.8 g/dL (3.2-5.5); ALBUMIN/GLOBULIN RATIO 1.5 (1.0-2.2); BILIRUBIN,TOTAL 0.9 mg/dL (0.2-1.0); CALCIUM 10.2 mg/dL (8.5-10.3); CREATININE 0.7 mg/dL (0.6-1.3); POTASSIUM 3.4 mmol/L (3.5-4.5)
[2022-09-15 18:07] LABS: ANTINUCLEAR ANTIBODIES IFA Negative (.)
== END 2022-09-13 23:59 | disposition home or self-care (01) ==
LOC: LAB.S 07:00
PROVIDERS: ATTEND Acupuncturist
DX: R10.30 Lower abdominal pain, unspecified (principal); R34 Anuria and oliguria
CPT/HCPCS: 36415; 80053; 81001; 85025; 86038; 87086

== ENCOUNTER 2022-12-06 10:24 | Outpatient (CLI) | payer MEDICAID ==
[2022-12-07 16:08] LABS: OSMOLALITY 283 mOsmol/kg (275-295); OSMOLALITY URINE 468 mOsmol/kg (.)
== END 2022-12-06 10:25 | disposition home or self-care (01) ==
LOC: LAB.S 10:24
PROVIDERS: ATTEND Internal Medicine
DX: E23.6 Other disorders of pituitary gland (principal)
CPT/HCPCS: 36415; 81003; 81599; 82670; 83001; 83002; 83930; 83935; 84295